=== PATIENT | female | born 1945 | race Caucasian/White ===

== ENCOUNTER → 2017-12-10 | Outpatient (CLI) | payer MEDICARE ==
[2017-12-10 10:53] LABS: HEMATOCRIT 42.1 % (36.0-47.0); MEAN CORPUSCULAR HEMOGLOBIN 29.8 pg (27.0-33.0); MEAN CORPUSCULAR HGB CONC 33.3 g/dl (32.0-36.5); MEAN CORPUSCULAR VOLUME 89.6 fl (80.0-96.0); PLATELET COUNT, AUTOMATED 200 10^3/uL (150-450); WHITE BLOOD COUNT 5.4 10^3/uL (4.0-10.0)
[2017-12-10 11:06] LABS: APPEARANCE, URINE CLEAR (CLEAR); BACTERIA, URINE AUTO NEGATIVE (NEGATIVE); BILIRUBIN, URINE AUTO NEGATIVE (NEGATIVE); BLOOD, URINE BLOOD NEGATIVE (NEGATIVE); COLOR, URINE YELLOW (YELLOW); GLUCOSE, URINE (UA) AUTO NEGATIVE (NEGATIVE); KETONE, URINE AUTO NEGATIVE (NEGATIVE); LEUKOCYTE ESTERASE, URINE AUTO TRACE (NEGATIVE); MUCUS, URINE SMALL (NEGATIVE); NITRITE, URINE AUTO NEGATIVE (NEGATIVE); PROTEIN, URINE AUTO NEGATIVE (NEGATIVE); RBC, URINE AUTO 3 /HPF (0-3); SPECIFIC GRAVITY URINE AUTO 1.002 (1.002-1.035); SQUAMOUS EPITHELIAL CELL UR AU 0 /HPF (0-6); UROBILINOGEN, URINE AUTO 0.2 mg/dL (0.0-2.0); WBC, URINE AUTO 9 /HPF (0-3)
[2017-12-10 11:08] LABS: INR 0.89; PROTHROMBIN TIME 12.1 SECONDS (12.4-14.5)
[2017-12-10 11:22] LABS: ALBUMIN 4.1 GM/DL (3.2-5.2); ALBUMIN/GLOBULIN RATIO 1.17 (1.00-1.93); ALKALINE PHOSPHATASE 79 U/L (45-117); ALT/SGPT 26 U/L (12-78); ANION GAP 3 MEQ/L (8-16); AST/SGOT 20 U/L (7-37); BILIRUBIN,TOTAL 0.4 MG/DL (0.2-1.0); BLOOD UREA NITROGEN 12 MG/DL (7-18); CALCIUM LEVEL 9.2 MG/DL (8.8-10.2); CARBON DIOXIDE LEVEL 33 MEQ/L (21-32); CHLORIDE LEVEL 108 MEQ/L (98-107); CREATININE FOR GFR 0.87 MG/DL (0.55-1.30); GLOMERULAR FILTRATION RATE > 60.0 (>39); GLUCOSE, FASTING 90 MG/DL (70-100); POTASSIUM SERUM 4.3 MEQ/L (3.5-5.1); SODIUM LEVEL 144 MEQ/L (136-145); TOTAL PROTEIN 7.6 GM/DL (6.4-8.2)
[2017-12-10 11:31] LABS: ERYTHROCYTE SEDIMENTATION RATE 10 mm/hr (0-30)
== END ==
LOC: M ADMPAT 09:14
DX: Z01.818 Encounter for other preprocedural examination (principal); M17.12 Unilateral primary osteoarthritis, left knee; Z79.899 Other long term (current) drug therapy; Z79.01 Long term (current) use of anticoagulants
CPT/HCPCS: 71046

== ENCOUNTER 2017-12-31 05:42 | Inpatient (IN) | payer MEDICARE ==
[2017-12-31] MEDS: LR 1,000 ML IV ×3 (06:17→14:33)
[2017-12-31] MEDS ORDERED: MIDAZOLAM INJ 2 MG/2 ML VIAL (J2250) As Ordered ×2 (06:43→07:02)
[2017-12-31] MEDS ORDERED: fentaNYL 100 MCG/2 ML INJECTION (J3010) As Ordered ×2 (06:43→07:02)
[2017-12-31] MEDS ORDERED: PROPOFOL 200 MG/20 ML VIAL As Ordered ×4 (07:04→08:25)
[2017-12-31] MEDS ORDERED: LIDOCAINE 2% INJ 100 MG/5 ML SDV (FOR ANES.) As Ordered ×2 (07:05→08:25)
[2017-12-31] MEDS: MIDAZOLAM INJ 2 MG/2 ML VIAL (J2250) IV (07:15)
[2017-12-31] MEDS: fentaNYL 100 MCG/2 ML INJECTION (J3010) IV (07:15)
[2017-12-31] MEDS ORDERED: PHENYLephrine HCL 500 MCG/5 ML (100MCG/ML) SYRINGE (J2370) As Ordered (08:25)
[2017-12-31] MEDS ORDERED: dexameTHASONE 4 MG/ML 1ML VIAL (J1100) As Ordered (08:25)
[2017-12-31] MEDS ORDERED: ePHEDrine SULFATE 25 MG/5 ML(5MG/ML) SYRINGE As Ordered (08:25)
[2017-12-31] MEDS ORDERED: ONDANSETRON 4MG/2ML VIAL (J2405) As Ordered (08:41)
[2017-12-31] MEDS: TRANEXAMIC ACID 100 MG/ML 10ML VIAL As Ordered (08:52)
[2017-12-31] MEDS: EPINEPHrine INJ 1 MG/ML 1ML AMP As Ordered (08:52)
[2017-12-31] MEDS: ceFAZolin 1GM INJ (J0690 PER 500MG) As Ordered (08:53)
[2017-12-31] MEDS: BUPIVACAINE LIPOSOME/PF 1.3% 20 ML VIAL (13.3MG/ML)(EXPAREL) As Ordered (08:53)
[2017-12-31] MEDS ORDERED: HYDROmorphone HCL 1 MG/ML SYRINGE (J1170) IV (09:30)
[2017-12-31] MEDS ORDERED: NALBUPHINE HCL 10 MG/ML AMP (J2300) IV (09:30)
[2017-12-31] MEDS ORDERED: NALOXONE INJ 0.4 MG/1 ML VIAL (J2310) IV (09:30)
[2017-12-31] MEDS ORDERED: MORPHINE 1MG/ML IN 0.9% NACL 100ML IV BAG IV (09:30)
[2017-12-31] MEDS ORDERED: FLEET ENEMA PR (09:30)
[2017-12-31] MEDS ORDERED: diphenhydrAMINE INJ 50MG/ML VIAL (J1200) IV (09:30)
[2017-12-31] MEDS ORDERED: EPIDURAL/PCA KEYS XX (09:30)
[2017-12-31] MEDS ORDERED: PERCOCET 5MG/325MG TAB PO (09:30)
[2017-12-31] MEDS ORDERED: ONDANSETRON 4MG/2ML VIAL (J2405) IV ×2 (09:30)
[2017-12-31] MEDS ORDERED: fentaNYL 100 MCG/2 ML INJECTION (J3010) IV (09:30)
[2017-12-31] MEDS ORDERED: dexameTHASONE 10 MG/1 ML VIAL PRES.FREE (J1100) (09:49)
[2017-12-31] MEDS ORDERED: ROPIvacaine 0.5% 30 ML INJECTION (J2795 PER 1MG) (09:49)
[2017-12-31] MEDS ORDERED: LIDOCAINE 1% MDV 20ML VIAL (09:49)
[2017-12-31] MEDS ORDERED: PANTOPRAZOLE 40MG TAB (PROTONIX) PO (13:00)
[2017-12-31] MEDS: LEVOTHYROXINE 75MCG TABLET (0.075MG) PO (14:33)
[2017-12-31] MEDS: ROSUVASTATIN 10 MG TAB (CRESTOR) PO ×2 (14:33→14:35)
[2017-12-31] MEDS: VITAMIN D 1,000 INTERNATIONAL UNITS TABLET PO (14:33)
[2017-12-31] MEDS: FEXOFENADINE 60 MG TAB PO (14:33)
[2017-12-31] MEDS: FLUTICASONE PROP 0.05% NASAL SPRAY 16 GM (FLONASE) (14:33)
[2017-12-31] MEDS: ASPIRIN 81 MG ENTERIC TAB PO (14:33)
[2017-12-31] MEDS: VITAMIN B COMPLEX/VIT C CAP PO (14:33)
[2017-12-31] MEDS: WARFARIN SOD 5 MG TAB PO (16:13)
[2017-12-31] MEDS: MOM 30ML SUSPENSION UDC PO (17:58)
[2017-12-31] MEDS: ONDANSETRON 4MG/2ML VIAL (J2405) IV (20:43)
[2017-12-31] MEDS: ACETAMINOPHEN TAB 650MG DOSE (2X325MG) PO (22:13)
[2017-12-31] MEDS: DIGOXIN INJ 0.5 MG/2 ML AMP (J1160) IV (23:12)
[2017-12-31] MEDS: NS 500 ML IV (23:45)
[2018-01-01] MEDS: DIGOXIN INJ 0.5 MG/2 ML AMP (J1160) IV (00:28)
[2018-01-01] MEDS: LR 1,000 ML IV (00:29)
[2018-01-01] MEDS: NS 500 ML IV (00:30)
[2018-01-01] MEDS: NORCO, ANEXSIA 5/325MG TABLET (HYDROcodone/ACETAMINOPHEN) PO ×4 (01:06→23:51)
[2018-01-01 04:20] LABS: HEMATOCRIT 33.8 % (36.0-47.0); HEMOGLOBIN 11.1 g/dl (12.0-15.5); MEAN CORPUSCULAR HEMOGLOBIN 29.8 pg (27.0-33.0); MEAN CORPUSCULAR HGB CONC 32.8 g/dl (32.0-36.5); MEAN CORPUSCULAR VOLUME 90.6 fl (80.0-96.0); PLATELET COUNT, AUTOMATED 148 10^3/uL (150-450); RED BLOOD COUNT 3.73 10^6/uL (4.00-5.40); RED CELL DISTRIBUTION WIDTH 14.4 % (11.5-14.5); WHITE BLOOD COUNT 12.1 10^3/uL (4.0-10.0)
[2018-01-01 04:34] LABS: INR 1.03; PROTHROMBIN TIME 13.6 SECONDS (12.4-14.5)
[2018-01-01] MEDS: LEVOTHYROXINE 75MCG TABLET (0.075MG) PO (06:25)
[2018-01-01] MEDS: FLUTICASONE PROP 0.05% NASAL SPRAY 16 GM (FLONASE) (08:28)
[2018-01-01] MEDS: VITAMIN B COMPLEX/VIT C CAP PO (08:28)
[2018-01-01] MEDS: VITAMIN D 1,000 INTERNATIONAL UNITS TABLET PO (08:28)
[2018-01-01] MEDS: ASPIRIN 81 MG ENTERIC TAB PO (08:29)
[2018-01-01] MEDS: FEXOFENADINE 60 MG TAB PO (08:29)
[2018-01-01] MEDS: ACETAMINOPHEN TAB 650MG DOSE (2X325MG) PO (08:30)
[2018-01-01] MEDS: METOPROLOL TART 12.5 MG PER 1/2 TAB PO ×2 (11:19→20:48)
[2018-01-01 11:37] LABS: ANION GAP 4 MEQ/L (8-16); BLOOD UREA NITROGEN 16 MG/DL (7-18); CALCIUM LEVEL 7.9 MG/DL (8.8-10.2); CARBON DIOXIDE LEVEL 30 MEQ/L (21-32); CHLORIDE LEVEL 109 MEQ/L (98-107); CREATININE FOR GFR 0.99 MG/DL (0.55-1.30); GLOMERULAR FILTRATION RATE 58.9 (>39); GLUCOSE, FASTING 102 MG/DL (70-100); MAGNESIUM LEVEL 2.5 MG/DL (1.8-2.4); POTASSIUM SERUM 3.9 MEQ/L (3.5-5.1); SODIUM LEVEL 143 MEQ/L (136-145)
[2018-01-01 13:26] LABS: FREE THYROXINE INDEX 4.3 % (1.3-4.8); T UPTAKE 38 % (30-39); THYROID STIMULATING HORMONE 0.987 uIU/ML (0.358-3.740); THYROXINE (T4) 11.2 UG/DL (4.5-12.0)
[2018-01-01] MEDS: MORPHINE 4 MG/ML 1ML VIAL/SYRINGE (J2270) IV ×2 (14:46→16:29)
[2018-01-01] MEDS: WARFARIN SOD 5 MG TAB PO (16:29)
[2018-01-02 05:06] LABS: HEMATOCRIT 34.2 % (36.0-47.0); HEMOGLOBIN 11.4 g/dl (12.0-15.5); MEAN CORPUSCULAR HEMOGLOBIN 30.3 pg (27.0-33.0); MEAN CORPUSCULAR HGB CONC 33.3 g/dl (32.0-36.5); PLATELET COUNT, AUTOMATED 145 10^3/uL (150-450); RED BLOOD COUNT 3.76 10^6/uL (4.00-5.40); RED CELL DISTRIBUTION WIDTH 14.6 % (11.5-14.5); WHITE BLOOD COUNT 10.1 10^3/uL (4.0-10.0)
[2018-01-02 05:17] LABS: INR 1.44; PROTHROMBIN TIME 17.9 SECONDS (12.4-14.5)
[2018-01-02] MEDS: LEVOTHYROXINE 75MCG TABLET (0.075MG) PO (06:03)
[2018-01-02] MEDS: NORCO, ANEXSIA 5/325MG TABLET (HYDROcodone/ACETAMINOPHEN) PO ×3 (06:03→18:29)
[2018-01-02] MEDS: FEXOFENADINE 60 MG TAB PO ×2 (08:58→21:52)
[2018-01-02] MEDS: VITAMIN B COMPLEX/VIT C CAP PO (08:58)
[2018-01-02] MEDS: ASPIRIN 81 MG ENTERIC TAB PO (08:58)
[2018-01-02] MEDS: METOPROLOL TART 12.5 MG PER 1/2 TAB PO ×2 (08:59→21:53)
[2018-01-02] MEDS: VITAMIN D 1,000 INTERNATIONAL UNITS TABLET PO (08:59)
[2018-01-02] MEDS: ROSUVASTATIN 10 MG TAB (CRESTOR) PO ×2 (08:59→21:52)
[2018-01-02] MEDS: FLUTICASONE PROP 0.05% NASAL SPRAY 16 GM (FLONASE) (09:00)
[2018-01-02] MEDS: WARFARIN SOD 7.5 MG TAB PO (18:30)
[2018-01-03] MEDS: NORCO, ANEXSIA 5/325MG TABLET (HYDROcodone/ACETAMINOPHEN) PO ×2 (01:55→08:37)
[2018-01-03] MEDS: LEVOTHYROXINE 75MCG TABLET (0.075MG) PO (05:32)
[2018-01-03 06:59] LABS: INR 1.52; PROTHROMBIN TIME 18.7 SECONDS (12.4-14.5)
[2018-01-03] MEDS: VITAMIN D 1,000 INTERNATIONAL UNITS TABLET PO (08:36)
[2018-01-03] MEDS: METOPROLOL TART 12.5 MG PER 1/2 TAB PO (08:36)
[2018-01-03] MEDS: VITAMIN B COMPLEX/VIT C CAP PO (08:36)
[2018-01-03] MEDS: FLUTICASONE PROP 0.05% NASAL SPRAY 16 GM (FLONASE) (08:37)
[2018-01-03] MEDS: DOCUSATE SODIUM 100 MG CAP PO (08:43)
[2018-01-03] MEDS ORDERED: WARFARIN SOD 7.5 MG TAB PO (17:00)
== END 2018-01-03 12:35 | disposition home health service (06) | DRG 470 ==
LOC: M OR 05:42 → M PCU 01-02 02:42 → M MS5PR 10:30 → M ICU 23:43 → M MSPAV 01-02 13:13
PROC: 0SRD0J9 Replacement of Left Knee Joint with Synthetic Substitute, Cemented, Open Approach (ICD-10-PCS; principal; 2017-12-31 07:30)
DX: M17.12 Unilateral primary osteoarthritis, left knee (principal); E78.5 Hyperlipidemia, unspecified; E03.9 Hypothyroidism, unspecified; K21.9 Gastro-esophageal reflux disease without esophagitis; I48.0 Paroxysmal atrial fibrillation; E55.9 Vitamin D deficiency, unspecified; J32.9 Chronic sinusitis, unspecified; J31.0 Chronic rhinitis; Z79.82 Long term (current) use of aspirin; Z79.899 Other long term (current) drug therapy; Z86.73 Personal history of transient ischemic attack (TIA), and cerebral infarction without residual deficits; Z88.6 Allergy status to analgesic agent

== ENCOUNTER → 2020-02-16 | Outpatient (CLI) | payer MEDICARE ==
[~2020-02-16] MED LIST: ALLE60TA69 PO; ASPI81TA26 PO; CO Q10CA PO; COUM2.5T17 PO; CRES10TA PO; D 1010002 PO; FLUT1LOT EX; FLUTISP; HYDR-3713 PO; LEVO75TA4 PO; LORA-622 PO; METO1TAB32 PO; METO1TAB87 PO; METO25TA4 PO; PANT40TA3 PO; PERC5TAB12 PO; VITA100067 PO; VITA500075 PO; VITATAB11 PO; XARE20TA PO; [UNRECOGNIZED DRUG - OTHER]; [UNRECOGNIZED DRUG - OTHER]
== END ==
LOC: M LABSMTC 11:28
PROVIDERS: ATTEND Anesthesiology
DX: Z01.818 Encounter for other preprocedural examination (principal); Z11.59 Encounter for screening for other viral diseases

== ENCOUNTER 2020-02-19 08:57 | Inpatient (IN) | payer MEDICARE ==
--- NOTE | 2020-02-16 10:46 | HPE ---
DATE OF ANTICIPATED ADMISSION: 02/19/2020 ATTENDING PHYSICIAN: Dr. Estuardo Zheng CHIEF COMPLAINT: Right knee pain and stiffness. HISTORY: The patient is a pleasant 74-year-old female with progressively worsening right knee pain and stiffness. She failed to improve with conservative measures. She continues to have symptoms with weightbearing activities and activities of daily living. She consented for an elective right total knee arthroplasty with Dr. Zheng for her continued symptoms. Medical optimization completed with TOM Fox. CURRENT MEDICATIONS: - B complex vitamins - Colace 100 mg daily - Lisa 180 mg daily - levothyroxine 75 mcg daily - loratadine 10 mg daily - daily multivitamin - vitamin D 1000 units daily - Xarelto 10 mg daily ALLERGIES: ANTIINFLAMMATORIES, results in gastrointestinal (GI) upset. CHRONIC MEDICAL CONDITIONS: Chronic recurrent sinusitis. Gastroesophageal reflux disease. History of transient ischemic attack (TIA). Hyperlipidemia. Hypothyroid. Paroxysmal atrial fibrillation. Chronic rhinitis. PAST SURGICAL HISTORY: Left total knee arthroplasty. Cholecystectomy. Bunionectomy. Partial hysterectomy. Bladder repair. Hammertoe correction. Tubal ligation. SOCIAL HISTORY: The patient does not use tobacco and rarely consumes alcohol. REVIEW OF SYSTEMS: The patient denies fevers, chills, nausea, vomiting, or diarrhea. Denies chest pain, shortness of breath, lightheadedness, dizziness, or headaches. She denies any abdominal pain or headaches. She denies any recent upper respiratory or urinary tract infection symptoms. She continues to have right knee pain with weightbearing activities and activities of daily living. PHYSICAL EXAMINATION: GENERAL: Well-nourished, well-developed female in no apparent distress. She is alert, oriented and cooperative. Mood and affect are appropriate. VITAL SIGNS: Blood pressure 128/64, heart rate 68, respirations 13. Height 66 inches. Weight 177 pounds. Temperature 96.8. HEART: Regular rate and rhythm despite diagnosis of paroxysmal atrial fibrillation. LUNGS: Clear to auscultation bilaterally. Breathing is regular and nonlabored. ABDOMEN: Soft and nontender to palpation. Bowel sounds are present. MUSCULOSKELETAL: The patient is walking with a slight limp favoring the right lower extremity. Right knee exhibits no gross abnormalities. Skin is intact. She has full extension of the knee and can flex to approximately 110 degrees. Right lower extremity strength is 5/5. No hip irritability elicited with range of motion testing. The patient's calf is soft, nontender to palpation with no palpable cords noted. She is neurovascularly intact distally. LABORATORY DATA: EKG normal sinus with rhythm with possible lateral infarct age indeterminate, no change from previous studies. Chest x-ray no acute cardiopulmonary process. Right knee x-ray notable for end-stage degenerative changes. Complete blood count - WBCs 5, RBCs 4.65, hemoglobin 14.1, hematocrit 42.2, platelets 184. Prothrombin time 10.6, INR 1. ESR 12. Comprehensive metabolic profile - BUN 17, sodium 141, potassium 4.0, chloride 108, carbon dioxide 20, anion gap 9, glucose 95, creatinine 0.9, ALT 20, AST 22, alkaline phosphatase 71, calcium 9.4, bilirubin 0.4, albumin 4.2, protein 7.9, GFR is greater than 60. IMPRESSION: Right knee osteoarthritis with x-rays notable for end-stage degenerative changes. PLAN: The patient consented for an elective right total knee arthroplasty with Dr. Zheng for her continued symptoms. Medical optimization completed with TOM Fox. The patient is using her Hibiclens wash and mupirocin nasal ointment. She will follow her primary housekeeper caregiver's recommendations for stopping anticoagulants and how to take their normal daily medications. The patient will be nothing by mouth after midnight with the exception of a small sip of water to take her metoprolol per her primary housekeeper caregiver's recommendations.
[~2020-02-19] VITALS: Ht 165.1 cm; Wt 81.1 kg
[~2020-02-19 08:57] MED LIST changes: +LIDOCAINE 1% MDV 20ML VIAL SQ PRN; -METO1TAB32 PO; -PERC5TAB12 PO
--- NOTE | 2020-02-19 10:14 | IPN ---
DATE: 02/19/2020 Patient seen and examined. She wishes to go ahead with a right total knee arthroplasty. She understands the nature of this, the risks of bleeding, infection, damage to nerves, vessels, persistent pain, wear loosening, blood clots, fracture, among others including . Plan on proceeding with a right knee arthroplasty.
[2020-02-19] MEDS ORDERED: LR 1,000 ML IV ONE (10:15)
[2020-02-19] MEDS ORDERED: ceFAZolin SOD 2 GM in IV 1 EA IV ONE (10:15)
[2020-02-19] MEDS ORDERED: fentaNYL 100 MCG/2 ML INJECTION (J3010) As Ordered ONE ×2 (10:44→11:07)
[2020-02-19] MEDS ORDERED: propofoL 500 MG/50 ML VIAL As Ordered ONE (10:45)
[2020-02-19] MEDS ORDERED: LIDOCAINE 2% 100MG/5ML SDV (FOR ANES.) As Ordered ONE (10:45)
[2020-02-19] MEDS ORDERED: MIDAZOLAM INJ 2MG/2ML VIAL (J2250 PER 1MG) As Ordered ONE ×2 (10:45→11:07)
[2020-02-19] MEDS ORDERED: ONDANSETRON 4MG/2ML VIAL As Ordered ONE (10:45)
[2020-02-19] MEDS ORDERED: EPINEPHrine INJ 1 MG/ML 1ML AMP As Ordered ONE (11:50)
[2020-02-19] MEDS ORDERED: BUPIVACAINE LIPOSOME/PF 1.3% 20ML VIAL (13.3MG/ML)(EXPAREL)(C9290 PER1MG) As Ordered ONE (11:50)
[2020-02-19] MEDS ORDERED: TRANEXAMIC ACID 100 MG/ML 10ML VIAL As Ordered ONE (11:50)
[2020-02-19] MEDS ORDERED: ceFAZolin 1GM VIAL (J0690 PER 500MG) As Ordered ONE (11:50)
[2020-02-19] MEDS ORDERED: MIDAZOLAM INJ 2MG/2ML VIAL (J2250 PER 1MG) IV PRN (12:00)
[2020-02-19] MEDS ORDERED: fentaNYL 100 MCG/2 ML INJECTION (J3010) IV PRN ×2 (12:00→14:30)
[2020-02-19] MEDS ORDERED: PHENYLephrine HCL 500 MCG/5 ML (100MCG/ML) SYRINGE (J2370) As Ordered ONE ×2 (12:51→14:17)
[2020-02-19] MEDS ORDERED: ePHEDrine SULFATE 25 MG/5 ML(5MG/ML) SYRINGE As Ordered ONE (13:02)
[2020-02-19] MEDS ORDERED: MORPHINE 4 MG/ML 1ML VIAL/SYRINGE (J2270) IV PRN (14:30)
[2020-02-19] MEDS ORDERED: ONDANSETRON 4MG/2ML VIAL IV PRN ×2 (14:30)
[2020-02-19] MEDS ORDERED: METOCLOPRAMIDE INJ 10MG/2ML VIAL (J2765 PER 1) IV PRN (14:30)
[2020-02-19] MEDS ORDERED: PERCOCET 5MG/325MG TAB PO PRN (14:30)
[2020-02-19] MEDS ORDERED: LR 1,000 ML IV SCH ×2 (14:30)
[2020-02-19] MEDS ORDERED: ACETAMINOPHEN TAB 650MG DOSE (2X325MG) PO PRN (14:30)
[2020-02-19] MEDS ORDERED: ROPIvacaine 0.5% 30ML INJECTION (J2795 PER 1MG) ONE (14:35)
[2020-02-19] MEDS ORDERED: LIDOCAINE 1% MDV 20ML VIAL ONE (14:35)
[2020-02-19] MEDS ORDERED: EPINEPHrine INJ 1 MG/ML 1ML AMP ONE (14:35)
--- NOTE | 2020-02-19 14:41 | HPEPDOC ---
[facility] Medical History & Physical Date of Admission Feb 19, 2020 Date of Service: Feb 19, 2020 Primary Care Physician: Estuardo Hernandez Attending Physician: MELO SULLIVAN MD History and Physical TIME OF SERVICE: 2:20 PM REASON FOR CONSULT: Postoperative care HISTORY OF PRESENT ILLNESS: This is a 74-year-old female who underwent elective right total knee replacement to manage severe right knee osteoarthritis. Currently, she reports her pain is well-controlled and has no acute complaints REVIEW OF SYSTEMS: n/a PAST MEDICAL/ SURGICAL HISTORY: TIA Dyslipidemia Hypothyroidism GERD Chronic rhinitis Paroxysmal atrial fibrillation on Xarelto Left knee replacement 2 years ago Partial hysterectomy Bladder surgery Cholecystectomy Tubal ligation Bunion surgeries She denies having a history of diabetes or CAD SOCIAL HISTORY: She is a former smoker She rarely drinks alcohol FAMILY HISTORY: CAD Dyslipidemia Chronic hypertension Lung cancer Breast cancer Diabetes ALLERGIES: Please see below HOME MEDICATIONS: Please see below PHYSICAL EXAMINATION: Vital Signs Date Time Temp Pulse Resp B/P (MAP) Pulse Ox O2 Delivery O2 Flow Rate FiO2 02/19/20 10:00 97.8 72 18 174/97 (122) 96 Room Air 02/19/20 11:05 2 GEN: well-nourished / well developed/ NAD INTEGUMENT: not flushed/ not jaundice / she has an old well-healed scar at the left knee HEENT: NCAT / mucus membranes moist and pink CVS: RRR/NMRG/ radial pulses intact / no lower extremity edema LUNGS: no coughing / lungs are clear to auscultation bilaterally on room air MSK/EXTREMITIES: Right lower extremity wrapped in cast NEURO: CN 2-12 are grossly intact / speech is not dysarthric PSYCH: alert and oriented / able to understand and follow all commands IMAGING: Postoperative X-ray of the right knee...report pending ASSESSMENT: Ms. Mcdaniel is a 74-year-old with a history of TIA, dyslipidemia, hypothyroidism, GERD, paroxysmal atrial fibrillation, left knee replacement, and multiple other surgeries, who underwent right total knee replacement to manage severe arthriti s; we were consulted for postoperative care. PLAN: 1. Severe right knee OA, status post right total knee replacement - Pain ma nagement per primary team / PT/OT 2. Dyslipidemia- rosuvastatin 3. Hypothyroidism - levothyroxine 4. Paroxysmal atrial fibrillation on Xarelto - metoprolol and rivaroxaban DVT PROPHYLAXIS: n/a pt is on AC DISPOSITION: pending clinical course Home Medications Scheduled Cholecalciferol (Vitamin D3) (Vitamin D3) 125 Mcg Capsule, 250 MCG PO DAILY Levothyroxine Sodium (Levothyroxine Sodium) 75 Mcg Tab, 75 MCG PO DAILY Loratadine (Loratadine) 10 Mg Tablet, 10 MG PO DAILY Metoprolol Succinate (Metoprolol Succinate) 25 Mg Tab.er.24h, 25 MG PO DAILY Rivaroxaban (Xarelto) 20 Mg Tablet, 20 MG PO DAILY Rosuvastatin Calcium (Crestor) 10 Mg Tab, 10 MG PO QHS TAKES AT HS Miscellaneous Medications Fluticasone Propionate (Fluticasone Propionate) 0.05 % Lot, 0.05 % EX 2sprays each nostril Allergies Coded Allergies: meloxicam (Verified Allergy, Severe, difficulty swallowing, 02/13/20) clavulanic acid (Verified Allergy, Intermediate, RASH, 02/19/20) doxycycline (Verified Allergy, Intermediate, rash, 02/13/20) SEASONAL ALLERGIES (Verified Allergy, Unknown, 12/10/17) MELO SULLIVAN MD Feb 19, 2020 14:41
[2020-02-19] MEDS ORDERED: METO1TAB32 PO (14:58)
[2020-02-19 15:16] VITALS: BP 147/79
--- NOTE | 2020-02-19 15:24 | REP ---
RIGHT KNEE SERIES: Two views. HISTORY: Postoperative evaluation. FINDINGS: AP and lateral views of the right knee demonstrate that the patient is status post right knee arthroplasty. Femoral, tibial, and radiolucent patellar prosthetic components appear well aligned. There is interarticular and periarticular soft tissue emphysema. Anterior skin tony are seen. Vascular calcification is noted. IMPRESSION: Status post right knee arthroplasty. Electronically Signed by Marc Larson MD 02/19/2020 06:15 P
[2020-02-19 15:48] VITALS: BP 134/90
[2020-02-19] MEDS: PERCOCET 5MG/325MG TAB PO PRN ×2 (15:53→22:02)
[2020-02-19 16:49] VITALS: BP 135/73
[2020-02-19 18:05] VITALS: BP 128/73
[2020-02-19] MEDS: MORPHINE 2 MG/ML 1ML VIAL (J2270) IV PRN (19:33)
[2020-02-19 19:45] VITALS: BP 103/66
[2020-02-19] MEDS: ceFAZolin SOD 2 GM in IV 1 EA IV SCH (20:53)
[2020-02-19] MEDS ORDERED: ROSUVASTATIN 10 MG TAB (CRESTOR) PO SCH (21:00)
[2020-02-20 01:55] VITALS: BP 105/62
[2020-02-20] MEDS: MORPHINE 2 MG/ML 1ML VIAL (J2270) IV PRN (02:12)
[2020-02-20] MEDS: PERCOCET 5MG/325MG TAB PO PRN (05:36)
[2020-02-20] MEDS: ceFAZolin SOD 2 GM in IV 1 EA IV SCH (05:36)
[2020-02-20 05:59] LABS: HEMATOCRIT 35.8 % (36.0-47.0); HEMOGLOBIN 11.7 g/dl (12.0-15.5); MEAN CORPUSCULAR HEMOGLOBIN 30.1 pg (27.0-33.0); MEAN CORPUSCULAR HGB CONC 32.7 g/dl (32.0-36.5); PLATELET COUNT, AUTOMATED 149 10^3/uL (150-450); RED BLOOD COUNT 3.89 10^6/uL (4.00-5.40); WHITE BLOOD COUNT 7.5 10^3/uL (4.0-10.0)
[2020-02-20] MEDS ORDERED: LEVOTHYROXINE 75MCG TABLET (0.075MG) PO SCH (06:00)
[2020-02-20] MEDS ORDERED: PERC5TAB12 PO (06:38)
[2020-02-20] MEDS ORDERED: METOPROLOL SUCC *XL* 25MG TAB (TopROL *XL*) PO SCH (09:00)
[2020-02-20] MEDS ORDERED: METOPROLOL TART 25 MG TABLET PO SCH (09:00)
[2020-02-20] MEDS ORDERED: MIRALAX *UNIT DOSE* 17GM PACKET PO SCH (09:00)
[2020-02-20] MEDS ORDERED: MOM 30ML SUSPENSION UDC PO SCH (09:00)
[2020-02-20 09:14] VITALS: BP 106/63
[2020-02-20 10:37] VITALS: BP 97/64
[2020-02-20] MEDS ORDERED: PERCOCET 5MG/325MG TAB PO PRN ×2 (11:15)
[2020-02-20 13:54] VITALS: BP 105/68
[2020-02-20] MEDS ORDERED: RIVAROXABAN 10 MG TAB (XARELTO) PO SCH (18:00)
--- NOTE | 2020-02-21 09:23 | RO ---
DATE OF PROCEDURE: 02/19/2020 PREOPERATIVE DIAGNOSIS: Right knee osteoarthritis. POSTOPERATIVE DIAGNOSIS: Right knee osteoarthritis. PROCEDURE: Right total knee arthroplasty using an Attune rotating platform posterior stabilized size 4 femur, size 4 tibia, 10 polyethylene and 35 patellar button. SURGEON: Dr. Estuardo Zheng GANG SAW OPERATOR: TOM Bloom ANESTHESIA: Spinal ESTIMATED BLOOD LOSS: Less than 50. COMPLICATIONS: None. INDICATIONS: This 74-year woman has had gradually worsening right knee pain. X-ray showed severe arthritis. She wished to go ahead with knee replacement. She understood the nature and risks associated with this. DESCRIPTION OF PROCEDURE: The patient was taken to the operating room and placed in supine position after spinal anesthesia was induced. The right lower extremity was prepped and draped in the usual sterile fashion. A time out was performed and tourniquet was inflated. We had prepped and draped in the usual fashion. I then created a longitudinal incision over the anterior aspect of the knee. Sharp dissection was carried down through subcutaneous tissue. There were some subcutaneous bleeders that were controlled with cautery. I performed a medial parapatellar arthrotomy per routine. I did a medial release. I removed some of the fat pad for visualization. I everted the patella and flexed the knee up. Used the canal initiating reamer on the femoral side, followed by the intramedullary guide set at 5 degrees of valgus, and a 9 mm cut. The pins were placed. Distal femoral cut was made, protecting soft tissues. I then sized the femur to be a 4. Placed the drill holes in the end of the femur with the external rotation dialed in and then secured the 4 cutting block and made the remaining four cuts in the usual fashion. I then prepared the tibial surface. The posterior retractor was placed and the external alignment guide was used and placed in appropriate amount of valgus and posterior slope. This was pinned in place at 4 mm off the medial side, which was the low side. The proximal tibia cut was made and I protected soft tissues at all times. It was evident that the posterior cruciate ligament (PCL) was deficient at this point. I did remove soft tissue and osteophytes from either side of the knee. I elected to go ahead with a posterior stabilized knee due to the deficiency of the PCL, so the box cutting guide was then placed. Protected the tibia, made the remaining three cuts and removed the box from the femoral side. I then sized the tibia to be a 4, this was pinned in place, drilled and broached. Spacer blocks were also used at this point to determine the estimated thickness of the polyethylene and we felt that a 10 was appropriate in flexion and extension. Excellent alignment and soft tissue balance was noted. The trial components were placed. I had drilled and broached the tibia, placed the femoral component in place, which seated nicely. The tibial tray was sitting nicely. I placed the polyethylene size 10 x 4. Brought the knee out in extension, put the knee through a range of motion. Excellent position, alignment and stability were noted. I then freehand cut the patella removing about 7 mm of bone, sized to be a 35. The drill holes were placed and the patellar button tracked very nicely. I also drilled the holes in the end of the femur. The curriculum assistant prepared the bone cement in the modern technique. I then placed the Exparel in the deep tissues. Irrigated and dried the bony surfaces carefully. Cemented on the . Placed the polyethylene and brought the knee out in some extension. Cemented on the patella, held it in place with a patellar clamp. I then placed the tranexamic acid (TXA) in the deep wound, irrigated copiously, as I had multiple times up to this point. Closed the deep layer with #1 Vicryl suture and a running Stratafix suture. Subcutaneous tissue was closed with #2-0 Vicryl and the skin with tony. Sterile dressing was applied. Tourniquet was deflated once the cement had hardened. The patient was taken to recovery room in stable condition. There were no known complications. The plan will be routine postop. The curriculum assistant was instrumental in holding retractors, assisting in exposure, assisting in mixing the bone cement, and wound closure.
--- NOTE | 2020-02-22 16:18 | DSES ---
DATE OF ADMISSION: 02/19/2020 DATE OF DISCHARGE: 02/20/2020 ADMISSION DIAGNOSIS: Osteoarthritis, right knee. OTHER DIAGNOSES: 1. History of a transient ischemic attack. 2. Elevated lipids. 3. Hypothyroidism. 4. Gastric reflux disease. 5. Chronic rhinitis. 6. Atrial fibrillation. DISCHARGE DIAGNOSIS: Osteoarthritis, right knee, status post right total knee arthroplasty. ATTENDING PHYSICIAN: Dr. Estuardo Zheng OPERATION PERFORMED: Right total knee arthroplasty on the right side. HISTORY: This is 74-year-old female patient with progressively worsening right knee pain and stiffness. She failed to improve with conservative management. She was admitted for elective knee replacement on the right side. HOSPITAL COURSE: On date of admission the patient underwent a right total knee arthroplasty, which was uneventful. She did well in the postoperative period, and her hospital course was without complications. She is up with physical therapy per the protocol. Pain was controlled on day of discharge. She was weightbearing as tolerated on her right lower extremity. She will use thromboembolic deterrent (KARISHMA) stockings for 30 days postoperatively for deep vein thrombosis (DVT) prophylaxis. She will also use Xarelto 10 mg per the protocol for DVT prophylaxis as well. She will resume her preoperative medications and diet. She was given instructions to include, but not limited to, wound monitoring and activity limitations. She will followup in our office in 7-10 days for surgical followup. Please refer to the medical record for further details. DENITA
== END 2020-02-20 14:24 | disposition home health service (06) | DRG 470 ==
LOC: M OR 08:57 → M MS5PR 14:50
PROVIDERS: ADMIT Orthopaedic Surgery; ATTEND Orthopaedic Surgery
PROC: 0SRC0J9 Replacement of Right Knee Joint with Synthetic Substitute, Cemented, Open Approach (ICD-10-PCS; principal; 2020-02-19 11:45)
DX: M17.11 Unilateral primary osteoarthritis, right knee (principal); J30.2 Other seasonal allergic rhinitis; K21.9 Gastro-esophageal reflux disease without esophagitis; E78.5 Hyperlipidemia, unspecified; E03.9 Hypothyroidism, unspecified; I48.0 Paroxysmal atrial fibrillation; Z11.59 Encounter for screening for other viral diseases; Z79.01 Long term (current) use of anticoagulants; Z79.899 Other long term (current) drug therapy; Z96.652 Presence of left artificial knee joint; Z90.49 Acquired absence of other specified parts of digestive tract; Z86.73 Personal history of transient ischemic attack (TIA), and cerebral infarction without residual deficits; Z87.891 Personal history of nicotine dependence; Z88.1 Allergy status to other antibiotic agents; Z88.6 Allergy status to analgesic agent; Z88.8 Allergy status to other drugs, medicaments and biological substances